=== PATIENT | male | born 1965 | race Two or more races ===

== ENCOUNTER 2022-11-06 05:50 | Day surgery (SDC) | payer OTHER ==
[~2022-11-06] VITALS: Ht 180.3 cm; Wt 60.0 kg
[2022-11-06] VITALS (13 sets, daily range): BP systolic 115–146; BP diastolic 71–94
[~2022-11-06 05:50] MED LIST: NO HOME MEDS; cefazolin 2gm/D5W 100mL 100 ML IV ONE; famotidine 20mg tablet PO ONE; ringers solution, lacted 1,000 ML IV SCH
[2022-11-06] MEDS ORDERED: BUPIVAcaine/PF 2.5 mg/ml (0.25%) 30ml vial ONE (06:42)
[2022-11-06] MEDS ORDERED: bacitracin 15gm ointment TP ONE (06:42)
[2022-11-06] MEDS ORDERED: fentaNYL/PF 50MCG/1 ML 2ML syringe ONE (08:05)
[2022-11-06] MEDS ORDERED: midazolam 1 mg/ML 2ml injection ONE (08:06)
[2022-11-06] MEDS ORDERED: propofol inj 20 ML IV ONE (08:14)
[2022-11-06] MEDS ORDERED: morphine 4 MG/ML inj SYRINge IV PRN (08:45)
[2022-11-06] MEDS ORDERED: morphine 2 MG/ML inj. syringe IV PRN (08:45)
[2022-11-06] MEDS ORDERED: ondansetron/PF 4mg/2ml inj IV PRN (08:45)
[2022-11-06] MEDS ORDERED: ringers solution, lacted 1,000 ML IV SCH (08:45)
[2022-11-06] MEDS ORDERED: meperidine/PF 25mg/ml syringe IV PRN ×2 (08:45)
[2022-11-06] MEDS ORDERED: proCHLORperazine 10 MG/2 ml inj IV PRN (08:45)
--- NOTE | 2022-11-06 09:00 | NUR ---
Received from OR via [facility], accompanied by Anesthesiologist and report given by DAMON Anesthesiologist. PATIENT AWAKE & ALERT, DENIES PAIN, V/S WNL, SCD ON, 20G TO RIGHT FOREARM-20G, LEFT FOOT JOSEPH WRAP DRESSING C/D/I. Addendum: 11/06/22 at 2174 by Tacho Perez RN Amended: Links added.
[2022-11-06] MEDS: meperidine/PF 25mg/ml syringe IV PRN ×2 (09:34→12:17)
--- NOTE | 2022-11-06 10:15 | NUR ---
PATIENT HAS MET ALL CRITERIA FOR TRANSFER TO [facility]. VSS. DRESSINGS INTACT. APPLIED SURGICAL BOOT ON LEFT LEG. BED LOW, CALL LIGHT PRESENT AND 2 RAILS UP. RN PRESENT TO ACCEPT CARE OF PATIENT AND REPORT HAS BEEN CALLED. ALL QUESTIONS ANSWERED TO ACCEPTING RN.
--- NOTE | 2022-11-06 10:20 | NUR ---
RECIEVED PATIENT FROM PACU, WILL HOLD PATIENT TILL RIDE ARRIVES AT 1330. ALL DISCHARGE PAPERWORK COMPLETED AND PATIENT IS READY FOR D/C WHEN RIDE GETS HERE. V/S STABLE. DRESSING CDI LEFT WITH CAM WALKER BOOT ON. PATIENT STATES PAIN CONTROLLED AT 4/10 PAIN.
--- NOTE | 2022-11-06 13:50 | NUR ---
patient a&ox4, V/S STABLE. DRESSING CDI LEFT WITH CAM WALKER BOOT ON. piv d/c. i have reviewed d/c instructions with patient and he has verbalized understanding. PATIENT STATES PAIN CONTROLLED patient d/c home with all belongings and friend who gave transport home.
== END 2022-11-06 13:50 | disposition home or self-care (01) ==
LOC: PAS 05:50
PROVIDERS: ATTEND Podiatrist Foot & Ankle Surgery
DX: T84.84XA Pain due to internal orthopedic prosthetic devices, implants and grafts, initial encounter (principal); M86.672 Other chronic osteomyelitis, left ankle and foot; M86.172 Other acute osteomyelitis, left ankle and foot; Z72.89 Other problems related to lifestyle; Y83.8 Other surgical procedures as the cause of abnormal reaction of the patient, or of later complication, without mention of misadventure at the time of the procedure; Y92.89 Other specified places as the place of occurrence of the external cause
CPT/HCPCS: 20240; 20680; 73620; 76000; 82948; 87070; 87075; 87077; 87186; J0690; J2175; J2250; J2270; J2704; J3010; J3490; J7030; J7120; Z7506; Z7512; A4215; A4618; A6253; A6449; A7000